=== PATIENT | male | born 1950 | race Caucasian/White ===

== ENCOUNTER → 2021-01-24 | Outpatient (CLI) | payer OTHER ==
[~2021-01-24] MED LIST: APPLE CIDER VI300 MG PO; B-COMPLEX-VITA1 EACH PO; CINNAMON500 MG PO; DIAZEPAM 10 MG10 M2 PO; FISH OIL CONCE1 EAC1 PO; FLUTICASONE PRO16 GM NASAL; L-ARGININE500 MG PO; PROZAC10 M1 PO; ROSUVASTATIN CAL5 MG PO; UBIQUINOL100 MG PO; VITAMIN A2400 MCG PO; VITAMIN C1000 MG PO; VITAMIN D325 MC5 PO
== END ==
LOC: LAB 09:09
PROVIDERS: ATTEND Ophthalmology
DX: Z01.812 Encounter for preprocedural laboratory examination (principal); Z20.822 Contact with and (suspected) exposure to COVID-19

== ENCOUNTER 2021-01-27 06:56 | Day surgery (SDC) | payer OTHER ==
[~2021-01-27] VITALS: Ht 175.3 cm; Wt 95.3 kg
--- NOTE | ~2021-01-27 | O ---
[facility] [place] [address] OPERATIVE REPORT Name: SUKHI BURTON Room #: DEP [facility].#: [id number] Admission: 01/27/21 Attend Phys: Curt Mcdaniel MD Discharge: 01/27/21 Date of : 52 Report #: [id number] THIS REPORT FOR: cc: KIYA INTERIANO APRN, ASHLEY APRN White, William L. MD ~ DOC #: [id number] cc: Kiya Porter MD DATE OF SERVICE: 01/27/2021 PRODUCT SALES ENGINEER: None. PREOPERATIVE DIAGNOSIS: Left-sided lower lid entropion. POSTOPERATIVE DIAGNOSIS: Left-sided lower lid entropion. OPERATION PERFORMED: Left-sided lower lid entropion repair. ANESTHESIA: Local with IV sedation. COMPLICATIONS: None. INDICATIONS FOR PROCEDURE: This patient has left-sided lower lid entropion with chronic irritation and discharge. The current procedure is being undertaken in order to improve the patient's level of comfort and visual function. Informed consent was obtained to include but not limited to the loss of vision, bleeding, infection, scarring, failure to improve the problem and need for further surgery. DESCRIPTION OF OPERATION: The patient was taken to the operating room, where 2% Xylocaine with epinephrine mixed with equal parts of 0.75% Marcaine with Wydase was administered transcutaneously and transconjunctivally to the lower lid and lateral canthal area. The patient was then prepped and draped in the usual sterile fashion. A Amos clamp was used to clamp the lateral canthus, following which a sharp canthotomy and cantholysis were performed. Hemostasis was achieved with a monopolar cautery, as it was throughout the case. A tarsal strip was prepared laterally, removing the lash-bearing portion of the redundant lid margin and the redundant tarsal plate. A transconjunctival dissection was then undertaken just inferior to the lower border of the tarsal plate. The lower lid retractors were disinserted from the inferior border of the tarsal plate. The lower lid retractors were then advanced and reattached to the anterior surface of the tarsal plate with mattress 5-0 chromic sutures passed transconjunctivally and secured in the infraciliary margin. The tarsal strip [address] [address] OPERATIVE REPORT Name: SUKHI BURTON [place] Room #: DEP [facility]#: [id number] Admission: 01/27/21 Attend Phys: Curt Mcdaniel MD Discharge: 01/27/21 Date of : 52 Report #: [id number] was then secured laterally with 2 interrupted 5-0 Prolene sutures. The subcutaneous structures and the skin were then closed with multiple interrupted 6-0 plain gut sutures so the lateral canthal angle was sharply reformed. The wound was then cleaned and dressed with ophthalmic antibiotic ointment. The patient was then transported to the recovery area having tolerated the procedure well with no anesthetic or operative complications being noted. MD BARBI Fofana/KIERSTEN By: [id number] Curt Mcdaniel MD /nt
[2021-01-27 10:03] VITALS: BP 137/77
== END 2021-01-27 13:15 | disposition home or self-care (01) ==
LOC: OR → TBA 09:23 → OR 10:03
PROVIDERS: ATTEND Ophthalmology
DX: H02.005 Unspecified entropion of left lower eyelid (principal); E11.9 Type 2 diabetes mellitus without complications; E78.5 Hyperlipidemia, unspecified; F41.9 Anxiety disorder, unspecified; K21.9 Gastro-esophageal reflux disease without esophagitis; Z98.890 Other specified postprocedural states; Z79.899 Other long term (current) drug therapy; Z85.828 Personal history of other malignant neoplasm of skin
CPT/HCPCS: 50101; 50386; 50398; 51636; 56527; 56531; 62110; 62850; 70005